=== PATIENT | female | born 1990 | race Two or more races ===

== ENCOUNTER 2022-02-23 13:43 | Inpatient (IN) | payer OTHER ==
[~2022-02-23] VITALS: Ht 170.2 cm; Wt 77.1 kg
[2022-02-23] MEDS ORDERED: FUSION PLUS CA1 EACH PO (14:07)
[2022-02-23] MEDS ORDERED: PRENATAL CAPLE1 EAC1 PO (14:07)
[2022-03-05] MEDS ORDERED: SURFAK240 M1 PO (14:14)
[2022-03-05] MEDS ORDERED: PERCOCET 5-3251 EACH PO (14:14)
[2022-03-05] MEDS ORDERED: IBU800 MG PO (14:14)
== END 2022-03-05 14:53 | disposition home or self-care (01) | DRG 786 ==
LOC: LDR 13:43 → OB/GYN 13:43 → LDR 13:48 → OB/GYN 03-02 15:10
PROVIDERS: ADMIT Specialist; ATTEND Specialist
PROC: 4A1HXCZ Monitoring of Products of Conception, Cardiac Rate, External Approach (ICD-10-PCS; 2022-02-23)
PROC: BY4FZZZ Ultrasonography of Third Trimester, Single Fetus (ICD-10-PCS; 2022-02-23)
PROC: BY4FZZZ Ultrasonography of Third Trimester, Single Fetus (ICD-10-PCS; 2022-02-27)
PROC: 10D00Z1 Extraction of Products of Conception, Low, Open Approach (ICD-10-PCS; principal; 2022-03-02 16:00)
DX: O46.8X3 Other antepartum hemorrhage, third trimester (principal); O60.14X0 Preterm labor third trimester with preterm delivery third trimester, not applicable or unspecified; O36.5930 Maternal care for other known or suspected poor fetal growth, third trimester, not applicable or unspecified; O36.8130 Decreased fetal movements, third trimester, not applicable or unspecified; O26.843 Uterine size-date discrepancy, third trimester; O35.0XX0 Maternal care for (suspected) central nervous system malformation in fetus, not applicable or unspecified; O26.853 Spotting complicating pregnancy, third trimester; O13.3 Gestational [pregnancy-induced] hypertension without significant proteinuria, third trimester; Z20.822 Contact with and (suspected) exposure to COVID-19; Z3A.34 34 weeks gestation of pregnancy; Z3A.33 33 weeks gestation of pregnancy; Z37.0 Single live birth